=== PATIENT | male | born 1980 | race Caucasian/White ===

== ENCOUNTER 2021-02-14 22:42 | Emergency (ER) | payer SELFPAY ==
[~2021-02-14] VITALS: Ht 165.1 cm; Wt 66.0 kg
[2021-02-14 23:03] VITALS: BP 118/81
[2021-02-14] MEDS ORDERED: HYDROCODONE/ACETAMINOPHEN 5/325MG TABLET PO ONE (23:15)
[2021-02-15] MEDS ORDERED: HYDR-4346 MT (00:07)
== END 2021-02-15 01:24 | disposition home or self-care (01) ==
LOC: ER 22:42
DX: S82.392A Other fracture of lower end of left tibia, initial encounter for closed fracture (principal); W17.89XA Other fall from one level to another, initial encounter; Y93.39 Activity, other involving climbing, rappelling and jumping off; Y92.89 Other specified places as the place of occurrence of the external cause; Y99.8 Other external cause status
CPT/HCPCS: 29515; 73590; 73610; 73630; 99284